=== PATIENT | male | born 1995 | race Caucasian/White ===

== ENCOUNTER 2018-12-26 14:36 | Inpatient (IN) ==
[2018-12-26 15:16] LABS: Appearance Urine Cloudy (Clear); Bacteria Urine Automated Negative (Negative); Bilirubin Urine Negative (Negative); Blood Urine Negative (Negative); Cast Urine Automated 0 /lpf (0-5); Color Urine Yellow; Epithelial Cell Urine Auto 0-5 /lpf (0-5); Glucose Urine UA Negative (Negative); Ketones Urine Negative (Negative); Leukocyte Esterase Urine Negative (Negative); Nitrite Urine Negative (Negative); Protein Urine Negative (Negative); RBC Urine Automated 0-4 /hpf (0-4); Specific Gravity Urine 1.021 (1.000-1.030); Urobilinogen Urine Negative (Negative); WBC Urine Automated 0 /hpf (0-5)
[2018-12-26 15:36] LABS: Amphetamines+Metham, Urine Neg (Neg); Barbiturates, Urine Neg (Neg); Benzodiazepine, Urine Neg (Neg); Cocaine, Urine Neg (Neg); MDMA (Ecstacy), Urine Neg (Neg); Methadone, Urine Neg (Neg); Opiate, Urine Neg (Neg); Phencyclidine, Urine Neg (Neg)
[2018-12-26 16:14] LABS: Basophils # (auto) 0.03 K/uL (0-0.2); Basophils % (auto) 0.3 %; Eosinophils # (auto) 0.14 K/uL (0-0.5); Eosinophils % (auto) 1.5 %; Hematocrit (blood only) 44.7 % (42-52); Hemoglobin 16.1 g/dL (14.0-18.0); Immature Granulocytes # (auto) 0.01 K/uL (0.00-0.02); Immature Granulocytes % (auto) 0.1 %; Lymphocytes # (auto) 1.59 K/uL (1.2-3.4); Lymphocytes % (auto) 16.8 %; Mean Corpuscular Volume 93.5 fL (80-100); Mean Platelet Volume 10.5 fL (7.4-10.4); Monocytes # (auto) 0.67 K/uL (0.11-0.59); Monocytes % (auto) 7.1 %; Neutrophils # (auto) 7.02 K/uL (1.4-6.5); Neutrophils % (auto) 74.2 %; Platelet Count 182 K/uL (130-400); Red Blood Count 4.78 M/uL (4.7-6.1); White Blood Count 9.46 K/uL (4.8-10.8)
[2018-12-26 16:41] LABS: BUN Creatinine Ratio 15.3 (10-20); Calcium 9.3 mg/dl (8.5-10.1); Creatinine Clr Calc Pharmacy 108.4 ml/min; Est GFR (African American) 106.4; Est GFR (Non-African American) 91.8; Potassium 4.2 mmol/L (3.5-5.1)
[2018-12-26 16:52] LABS: Albumin Globulin Ratio 1.2 (0.9-2); Bilirubin,Total 1.4 mg/dl (0.2-1); Globulin 3.3 gm/dl (2.5-4.0); Total Protein 7.3 gm/dl (6.4-8.2)
[2018-12-26 17:22] LABS: Acetaminophen < 2 ug/ml (10-30); Salicylate < 1.7 mg/dl (2.8-20)
--- NOTE | 2018-12-26 17:58 | Emergency Department Note ---
Entered by Cassidy Escalante acting as a scribe for ED Provider Note CHIEF COMPLAINT: Mental Health Evaluation HISTORY OF PRESENT ILLNESS: The patient is a 23 year old male who presents to the Emergency Room with complaints of needing a mental health evaluation. He reports he has been feeling depressed for the past 3 weeks. He denies any new stressors or triggers and admits to a history of depression and anxiety. He notes he recently moved from [place] to [facility] and has been trying to establish with a new therapist in [place], but came back to [place] because of his worsening mood and increased stress. He does not have a current Psychiatrist. He states he has never been treated as an inpatient at a psychiatric facility before. He was on Zoloft, but states he stopped taking it 2 days ago. He had been on it for appro ximately 2 months. The patient saw his PCP, Dr. Donovan recently and talked about his increasing suicidality, and he was referred here to the ED for his symptoms. He notes he has been sleeping more and still wakes up feeling very tired every day. The patient admits he has did buy a rope and tied a noose with the attempt to hang himself. He stopped because the rope "hurt". He notes he did drive to a bridge last night but did not do anything once he got there. He denies any homicidal ideations. Pt denies LOC, headache, fevers, chills, diaphoresis, visual changes, neck pain, chest pain, breathing difficulties, nausea, vomiting, abdominal pain, back pain, melena, hematochezia, urinary symptoms, numbness, weakness, lymphadenopathy, rash, or other complaints. REVIEW OF SYSTEMS: See HPI for pertinent positives and negatives. A total of ten systems were r eviewed and were otherwise negative. PMHx/PSHx: Depression. Anxiety. SOCIAL HISTORY: Patient lives at home. PHYSICAL EXAM: GENERAL: Awake, alert, well-appearing, in no distress HENT: Normocephalic, atraumatic. Oropharynx unremarkable. EYES: PERRL. Normal conjunctiva. Sclera non-icteric. NECK: Inspection normal. Non-tender. Supple. No nuchal rigidity. FROM. No masses. RESPIRATORY: Clear to auscultation. No wheezes. No rales. Normal respiratory effort. CARDIAC: Normal rate. Normal rhythm. No murmurs. No rubs. Extremities warm and well perfused. Pulses equal. No JVD. GI: Soft, non-distended. No tenderness to palpation. No rebound or guarding. No masses. RECTAL: Deferred. MUSCULOSKELETAL: Atraumatic. Chest examination reveals no tenderness. The back is symmetrical on inspection without obvious abnormality. There is no CVA tenderness to palpation. No joint edema. LOWER EXTREMITIES: Calves are equal size bilaterally and non-tender. No edema. No discoloration. NEURO: Normal sensorium. No sensory or motor deficits noted. Normal MARLA, no drift, cranial nerves intact, normal heel to osorio. SKIN: No rash or jaundice noted. PSYCHIATRIC: Depressed mood, normal affect, SI, no HI. EMERGENCY DEPARTMENT COURSE: 152: Past medical records reviewed. The patient was evaluated in room A5, and a complete history and physical examination were performed. 1718: Psychiatric Case Management is evaluating the patient. 1735: I reevaluated the patient. I updated him on our [facility] being in contact with Jyoti Zafar and he is agreeable with the plan. 1815: Jyoti Zafar will be taking the patient upstairs for further evaluation and management. MEDICAL DECISION MAKING: Triage Nursing notes reviewed and agree them. The patient's history was concerning for possible psychiatric disturbance. Differential diagnosis: Etiologies such as mood disorder, infection, hypoglycemia, electrolyte abnormalities, cardiac sources, intracerebral event, toxicologic, neurologic, as well as others were entertained. Physical examination: The physical examination was performed as above and was completely benign. No emergent medical pathologies were noted. ER treatment provided: No medication given On reassessment the patient felt the same. Diagnostic interpretation by me: The labs revealed an unremarkable CBC and chemistry panel. Tox screen negative. Consultation: The consultation was made with [address] [place] [address]. The patient was evaluated in the ER and felt to be a good candidate for inpatient treatment. Patient was voluntary for admission. IMPRESSION: Mood disorder PLAN: Further evaluation and management by Jyoti Zafar The scribe's documentation has been prepared under my direction and personally reviewed by me in its entirety. I confirm that the note above accurately reflects all work, treatment, procedures, and medical decision making performed by me. Impression & Plan Mood disorder Past Med/Surg History Family History Other No pertinent family history Social History Preferred Language: Senegalese Communication Ability: Effective Visual Impairment: No Limitations Hearing Ability: Normal Patient Ambassador Required: No Beliefs That Will Affect Care: None marital status: Single Current Living Situation: Family current occupational status: student current occupation: also works registered nurse post partum Feels Safe at Home: Yes Smoking Status: Former smoker Tobacco Type: e-cigarettes ; Second Hand Exposure: No ; Hx Alcohol Use: Yes Alcohol Intake Frequency: Rarely Hx Substance Use: No Childhood Exposure to Second-Hand Smoke: No Dental Care, Regularly: Yes Physical Activity Frequency: 3-4 Times per Week Results & Data Vital Signs Vital Signs - 24 hr 12/26/18 14:42 12/26/18 16:27 Temperature 36.7 C Temperature Source Oral Sepsis Recent Fever Within 48 Hours No Sepsis New/Unexplained Change in Mental Status No Sepsis Action Taken by Nursing No Action Required Pulse Rate 143 H Pulse Rate [Left Finger] 62 Respiratory Rate 20 20 Respiratory Effort / Characteristics Non-Labored Non-Labored Respiratory Depth Normal Normal Respiratory Pattern Regular Blood Pressure 127/74 Blood Pressure [Left Arm] 123/65 Blood Pressure Mean 91 Blood Pressure Mean [Left Arm] 84 Blood Pressure Position Sitting Pulse Oximetry 95 98 Oxygen Delivery Method Room Air Room Air Home Medications Current Medication List: was personally reviewed by me Laboratory Data Attestation: I reviewed the patient's lab results. Result diagrams: 12/26/18 15:58 12/26/18 15:58 Lab Results 12/26/18 12/26/18 12/26/18 Range/Units 15:04 15:04 15:58 WBC 9.46 (4.8-10.8) K/uL RBC 4.78 (4.7-6.1) M/uL Hgb 16.1 (14.0-18.0) g/dL Hct 44.7 (42-52) % MCV 93.5 (80-100) fL MCH 33.7 (25-34) pg MCHC 36.0 (32-36) g/dL RDW Std Deviation 45.0 (36.4-46.3) fL RDW Coeff of Steffany 13.0 (11.5-14.5) % Plt Count 182 (130-400) K/uL MPV 10.5 H (7.4-10.4) fL Immature Gran % (Auto) 0.1 % Neut % (Auto) 74.2 % Lymph % (Auto) 16.8 % Carter % (Auto) 7.1 % Eos % (Auto) 1.5 % Baso % (Auto) 0.3 % Immature Gran # (Auto) 0.01 (0.00-0.02) K/uL Neut # (Auto) 7.02 H (1.4-6.5) K/uL Lymph # (Auto) 1.59 (1.2-3.4) K/uL Carter # (Auto) 0.67 H (0.11-0.59) K/uL Eos # (Auto) 0.14 (0-0.5) K/uL Baso # (Auto) 0.03 (0-0.2) K/uL Sodium (136-145) mmol/L Potassium (3.5-5.1) mmol/L Chloride (98-107) mmol/L Carbon Dioxide (21-32) mmol/L Anion Gap (3-11) BUN (7-18) mg/dl Creatinine (0.6-1.4) mg/dl Est Cr Clr Drug Dosing ml/min Est GFR ( Amer) Est GFR (Non-Af Amer) BUN/Creatinine Ratio (10-20) Glucose (70-99) mg/dl Calcium (8.5-10.1) mg/dl Total Bilirubin (0.2-1) mg/dl AST (15-37) U/L ALT (12-78) U/L Alkaline Phosphatase (45-117) U/L Total Protein (6.4-8.2) gm/dl Albumin (3.4-5.0) gm/dl Globulin (2.5-4.0) gm/dl Albumin/Globulin Ratio (0.9-2) TSH (0.300-4.500) uIu/ml Urine Color Yellow Urine Appearance Cloudy A (Clear) Urine pH 8.0 H (4.5-7.5) Ur Specific Wellborn 1.021 (1.000-1.030) Urine Protein Negative (Negative) Urine Glucose (UA) Negative (Negative) Urine Ketones Negative (Negative) Urine Blood Negative (Negative) Urine Nitrite Negative (Negative) Urine Bilirubin Negative (Negative) Urine Urobilinogen Negative (Negative) Ur Leukocyte Esterase Negative (Negative) Urine WBC (Auto) 0 (0-5) /hpf Urine RBC (Auto) 0-4 (0-4) /hpf U Hyaline Cast (Auto) 0 (0-5) /lpf U Epithel Cells (Auto) 0-5 (0-5) /lpf Urine Bacteria (Auto) Negative (Negative) Salicylates (2.8-20) mg/dl Urine Opiates Screen Neg (Neg) Ur Methadone, Qual Neg (Neg) Acetaminophen (10-30) ug/ml Urine Barbiturates Neg (Neg) Ur Phencyclidine (PCP) Neg (Neg) U Amphetamin/Meth Scrn Neg (Neg) MDMA (Ecstasy) Screen Neg (Neg) U Benzodiazepines Scrn Neg (Neg) Ur Cocaine Metabolite Neg (Neg) U Marijuana (THC) Screen Neg (Neg) Ethyl Alcohol mg/dL (0-3) mg/dl 12/26/18 12/26/18 12/26/18 Range/Units 15:58 15:58 15:58 WBC (4.8-10.8) K/uL RBC (4.7-6.1) M/uL Hgb (14.0-18.0) g/dL Hct (42-52) % MCV (80-100) fL MCH (25-34) pg MCHC (32-36) g/dL RDW Std Deviation (36.4-46.3) fL RDW Coeff of Steffany (11.5-14.5) % Plt Count (130-400) K/uL MPV (7.4-10.4) fL Immature Gran % (Auto) % Neut % (Auto) % Lymph % (Auto) % Carter % (Auto) % Eos % (Auto) % Baso % (Auto) % Immature Gran # (Auto) (0.00-0.02) K/uL Neut # (Auto) (1.4-6.5) K/uL Lymph # (Auto) (1.2-3.4) K/uL Carter # (Auto) (0.11-0.59) K/uL Eos # (Auto) (0-0.5) K/uL Baso # (Auto) (0-0.2) K/uL Sodium 139 (136-145) mmol/L Potassium 4.2 (3.5-5.1) mmol/L Chloride 105 (98-107) mmol/L Carbon Dioxide 27 (21-32) mmol/L Anion Gap 7.0 (3-11) BUN 17 (7-18) mg/dl Creatinine 1.11 (0.6-1.4) mg/dl Est Cr Clr Drug Dosing 108.4 ml/min Est GFR ( Amer) 106.4 Est GFR (Non-Af Amer) 91.8 BUN/Creatinine Ratio 15.3 (10-20) Glucose 97 (70-99) mg/dl Calcium 9.3 (8.5-10.1) mg/dl Total Bilirubin 1.4 H (0.2-1) mg/dl AST 22 (15-37) U/L ALT 34 (12-78) U/L Alkaline Phosphatase 54 (45-117) U/L Total Protein 7.3 (6.4-8.2) gm/dl Albumin 4.0 (3.4-5.0) gm/dl Globulin 3.3 (2.5-4.0) gm/dl Albumin/Globulin Ratio 1.2 (0.9-2) TSH 3.120 (0.300-4.500) uIu/ml Urine Color Urine Appearance (Clear) Urine pH (4.5-7.5) Ur Specific Wellborn (1.000-1.030) Urine Protein (Negative) Urine Glucose (UA) (Negative) Urine Ketones (Negative) Urine Blood (Negative) Urine Nitrite (Negative) Urine Bilirubin (Negative) Urine Urobilinogen (Negative) Ur Leukocyte Esterase (Negative) Urine WBC (Auto) (0-5) /hpf Urine RBC (Auto) (0-4) /hpf U Hyaline Cast (Auto) (0-5) /lpf U Epithel Cells (Auto) (0-5) /lpf Urine Bacteria (Auto) (Negative) Salicylates < 1.7 L (2.8-20) mg/dl Urine Opiates Screen (Neg) Ur Methadone, Qual (Neg) Acetaminophen < 2 L (10-30) ug/ml Urine Barbiturates (Neg) Ur Phencyclidine (PCP) (Neg) U Amphetamin/Meth Scrn (Neg) MDMA (Ecstasy) Screen (Neg) U Benzodiazepines Scrn (Neg) Ur Cocaine Metabolite (Neg) U Marijuana (THC) Screen (Neg) Ethyl Alcohol mg/dL < 3.0 (0-3) mg/dl Blood Pressure Blood Pressure Findings: Normal blood pressure Blood Pressure Disposition: did not require urgent referral Discharge Plan Visit Data *Final* Discharge Date/Time: 12/26/18 19:13 Chief Complaint: Mental Health Evaluation Stated Complaint: PSYCHIATRIC EMERGENCY ED Provider: Cullen Marin Discharge Problem: Mood disorder Patient Disposition: Still a Patient Discharge Instructions Interventions: ED Discharge Assessment Last Done: 12/26/18 19:13 The scribe's documentation has been prepared under my direction and personally reviewed by me in its entirety. I confirm that the note above accurately reflects all work, treatment, procedures, and medical decision making performed by me.
[2018-12-26] MEDS ORDERED: BISMUTH SUBSALICYLATE PER ML OMNICELL CHARGE PO PRN (18:23)
[2018-12-26] MEDS ORDERED: ACETAMINOPHEN 325 MG TAB PO PRN (18:23)
[2018-12-26] MEDS ORDERED: SODIUM CHLORIDE 0.65% NA SOLN 45 ML (OCEAN) PRN (18:23)
[2018-12-26] MEDS ORDERED: MAGNESIUM HYDROXIDE SUSP 30 ML UDC PO PRN (18:23)
[2018-12-26] MEDS ORDERED: ALUMINUM/MAGNESIUM SUSP 30 ML UDC PO PRN (18:23)
[2018-12-26] MEDS ORDERED: EPINEPHrine INJ 1 MG/ML AMP IM PRN (20:55)
[2018-12-26] MEDS ORDERED: ALBUTEROL HFA 8 GM INHALER INH PRN (20:55)
[2018-12-26] MEDS ORDERED: TOPIRAMATE 50 MG TAB PO SCH (21:00)
[2018-12-26] MEDS ORDERED: lamoTRIgine 25 MG TAB PO SCH (21:00)
[2018-12-26] MEDS ORDERED: LEVOTHYROXINE SODIUM 25 MCG TABLET PO SCH (22:00)
--- NOTE | 2018-12-27 07:10 | History & Physical ---
Date of Service December 27, 2018 Impression / Recommendations Impression 23-year-old single male who recently moved to [facility] but has family in [place], has a history of recurrent depression and social anxiety, and presented with worsening mood and suicidal ideation, after multiple suicide attempts in the past several weeks, including hanging and jumping off a bridge (went to the bridge and sent a suicide note to friends, but did not ultimately jump). He describes worsening of depression after a breakup about 4 weeks ago, compounded by multiple psychosocial stressors including a move and looking for a job, and also complicated by the history of his father's completed suicide by hanging 4 years ago. He had good response to sertraline with respect to anxiety and some of his depressive symptoms, but questions if it was were making his suicidal thoughts more intense, so stopped it several days ago. We discussed other medication options including escitalopram, fluoxetine, and venlafaxine XR. He recently started therapy in [place], and is willing for a referral for psychiatric care as well. He is also agreed to a family meeting with his mother. Inpatient treatment is medically necessary at this time due to the severity of symptoms and risk for suicide if discharged prematurely. (1) Depression: 12/27 - Reviewed diagnoses and treatment options, including resuming sertraline while monitoring SI closely, trial of a different SSRI (escitalopram or fluoxetine), or trial of SNRI. Discussed risks and benefits of each, and he will consider the options and wants to talk to his mother to see what she has responded to medication-becker. - Encourage group attendance and participation, working on coping skills and safety plan. - Family meeting with mother. - Coordinate care with therapist in [facility] and refer for psychiatric care. Depression Type: major depressive disorder Major depression recurrence: recurrent Active/Remission status: currently active Major depression episode severity: severe Psychotic features: without psychotic fe atures Qualified Code(s): F33.2 - Major depressive disorder, recurrent severe without psychotic features Present on Admission?: Yes (2) Anxiety: 12/27 - long standing social anxiety, improved on SSRI in the past. Med recs as above, and continue OP therapy. Present on Admission?: Yes Inventory Assets Strengths: supportive family, intelligence and engagement in treatment Needs: coping skills, OP treatment, safety plan Risk Factors Assessment Male: Yes : Yes Do You Have Access To A Gun?: No Health Problems: No Mental Health Diagnoses: Yes Substance Use Disorders: No Previous Attempt: Yes Previous Attempt; Highly Lethal: Yes Previous Attempt; Planned: Yes Previous Attempt; Didn't Tell Anyone: No Family History of Suicide: Yes Previous Psychiatric Hospitalization: No Hopelessness: Yes Smoker: Yes Protective Factors Assessment : No Responsible for Young Children: No 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 Chief Complaint "You got a minute, it might take a while". History of Present Illness Per records, the patient presented to the ER yesterday, 12/26/2018, reporting worsening depression for the past 3 weeks. He reported multiple stressors including the of his father by suicide several years ago, a recent move, and that his girlfriend broke up with him. He said he recently moved to [facility] and does not have outpatient mental health treatment, but had been prescribed sertraline by his PCP 2 months ago which she stopped 2 days prior to presentation as he thought it was making him feel worse. He saw his PCP, Dr. Donovan, and disclosed increasing suicidality, and was referred to the emergency room. He reported suicidal thoughts with multiple plans, and 3 weeks ago bought a rope and tied it into a noose which he put around his neck, but stopped because it hurt. The night prior to presentation he drove to a bridge in [facility] with thoughts of jumping, but did not go through with it, and the following day decided to drive back home to [place] and get help. Inpatient treatment was recommended and he signed in voluntarily. While he was in the ER, local police called to report that his ex girlfriend and her family reported him for harassment, and that he contacted the patient to warn him to cease communication. He clarified that no criminal charges are filed at this time. On my assessment, he reports that "the biggest thing is I just got out of a relationship with someone I was deeply, deeply in love with. I've been iced out by them, sort of needed answers and I've been blocked." He knew his ex- girlfriend from and she is also from [employer], and they have a history, and have been dating for the past year which he describes as "really intense." He has been surprised at his ex-girlfriend's response in not wanting to talk to him, noting they broke up the day before he moved to [facility] 4 weeks ago. He started having suicidal thoughts about a week later, and after a couple days bought a rope and went to a park that he knew would be empty at night, climbed up a tree and hung up the rope that he had tied into a noose, and throughout this was calling his ex. He was also drinking throughout the incident. He had researched where on the neck to apply pressure to end his life. He decided to go home as he didn't want someone to come along while he was doing this, thinking he could hang himself at home, "but another part of me thought I was just going to go to bed." He called his ex-girlfriend again, begging her to talk to him and saying that he just had a rope around his neck. She had been telling him not to call her, but they ultimately talked and the conversation ended badly. He returned home and attempted to hang himself again, hanging the noose over a door, and went to his knees to apply pressure, and thinks he was about to lose consciousness but was in a lot of pain and put his feet down. He felt shaken and "overwhelmingly sad," and reached out to some of his friends who were supportive. His ex-girlfriend then blocked all communication with him. About a week later, he again felt "really low," describing "just sitting in bed and an overwhelming, adrenaline, waves of stress," and frustration that he was still looking for a job and mourning his relationship. He had been talking to one friend daily but "just started lying about it," saying he was "doing great" when he wasn't, as he felt guilty for "asking so much of his." He used cocaine one night at a republican, which he recognized worsened his mood as it "really depleted my dopamine." He did enjoy his birthday with his mother visiting and going to dinner and a show, but later than night was "bawling, screaming, because it's just intolerable." He reports mood symptoms improved on sertraline, but wonders if it is causing suicidal thoughts, as his SI has gotten stronger and he has had more times where he has intent to follow through. He thinks that about 15% of his SI is due to medication. He denies changes in appetite or weight, sleeping 8 hours/night but still feels tired during the day, motivation is low, with hopelessness. Describes daily thinking that he should go out and get a job, but then thinking "you're just going to submit suicide anyway." Describes renting a movie and knew the protagonist looked like his ex-girlfriend, drinking alcohol while watching it, pausing the movie intermittently to cry, and when it was over going to a bridge with thoughts to jump, knowing that there was a place in the middle where there was land underneath it. He had previously looked up bridges in [facility] that people could jump off to in order to , and sent messages to two friends explaining where his phone, keys, and car were, and asking them to pass messages on to other people. He was also repeatedly calling his ex-girlfriend throughout this incident, and tried to call her mother as well. When he arrived, he was "there for a while," climbed up on the ledge, and one of his friends then called him and he climbed back down to talk to him, and ultimately called his mother who told him to come back to [place], and after sleeping, came into the ER. 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 H/o one panic attack a year ago when driving a rental car that broke down. Denies SUSAN, PTSD, OCD symptoms, other than times where he was "obsessive" about tightening and tuning his drums, which is not going on currently. He denies ever having hallucinations, paranoia, and aryan. Past Psychiatric History Previous Psych History: Multiple episodes of depression and anxiety, first diagnosed at the beginning of college Current Psychiatric Diagnosis: Depression Outpatient Services: PCP Dr. Donovan prescribes antidepressant medication. Recently started therapy with Bello Whipple in [facility] Previous Psych Admissions: Denies Do You Have Access To A Gun?: No History of Previous Suicide Attempt: Yes (Bought a rope, tied it into a noose, and put it around his neck 3 weeks ago. Went to a bridge in [facility] with thoughts of jumping 12/25/2018.) Past Medication Trials: Sertraline 75 mg x 2 months, stopped 2 days ago as wondered if it was making SI worse unknown antidepressant for 2 weeks at age 16, but stopped after a couple of weeks as didn't think it was working Allergies Allergy/AdvReac Type Severity Reaction Status Date / Time No Known Allergies Allergy Unverified 12/26/18 15:17 Home Medications Home Medications Medication Instructions Recorded Confirmed Type sertraline 50 mg tablet 75 mg PO DAILY #135 tab 11/27/18 12/26/18 Rx cetirizine [Zyrtec] 10 mg PO DAILY 12/26/18 12/26/18 History melatonin 3 mg PO HS PRN 12/26/18 12/26/18 History multivitamin with iron 1 tab PO DAILY 12/26/18 12/26/18 History Family History Family History of: Anxiety (Paternal aunt with OCD), Alcoholism/Drug Abuse ([facility] [place] [facility] alcoholic) and Suicide Completion (Father by suicide 4 years ago (hanging)) Family Mental Health History Comment: Believes paternal grandparents had an unknown mental illness Alcohol History Hx of Alcohol Use Over the Past 12 Months: Yes (1-2 drinks daily for past month) AUDIT Total Score: 4 Patient reports drinking nightly for the past month to help him sleep. He denies any history of substance abuse problems or treatment, but reports a family history of alcoholism. Smoking Use Have You Smoked or Used Tobacco Products in the Last 30 Days: Yes tobacco type: e-cigarettes Smoking Status: Former smoker Smoking packs per day: 0.5 Substance History Hx of Prescription Med Misuse Over the Past 12 Months: No Hx of Over the Counter Med Misuse Over the Past 12 Months: No Hx of Inhalent Misuse Over the Past 12 Months: No Hx of Organic Substance Use Over the Past 12 Months: No Hx of Illegal Substances/Street Drug Use Over Past 12 Months: Yes (cocaine use once 2 weeks ago) Problems as a Result of Past Substance Use: Other (worsened mood ) Personal History Living Arrangements: Apartment Living Arrangements Comments: Apartment with 2 roommates and [facility] Childhood: Living in [place] since age 13. Mother and brother still reside here. 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) Marital Status: Single Number Of Children: 0 Beliefs That Will Affect Care: None Legal Problems Comment: Police contacted him to advise him not to contact his ex-girlfriend Hx Traumatic Life Events: Yes Psychological Trauma History Comment: Father's by suicide Patient History Family History Other No pertinent family history Social History Preferred Language: Syriac Communication Ability: Effective Visual Impairment: No Limitations Hearing Ability: Normal Licensed Prosthetist Required: No Beliefs That Will Affect Care: None marital status: Single Current Living Situation: Family current occupational status: student 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 Feels Safe at Home: Yes Smoking Status: Former smoker Tobacco Type: e-cigarettes ; Second Hand Exposure: No ; Hx Alcohol Use: Yes Alcohol Intake Frequency: Rarely Hx Substance Use: No Childhood Exposure to Second-Hand Smoke: No Dental Care, Regularly: Yes Physical Activity Frequency: 3-4 Times per Week Review of Systems Review of Systems: All systems reviewed & are unremarkable except as noted in HPI & below Physical Exam Psychiatric: Orientation: alert and cooperative Apperance: appropriately dressed Eye Contact: good eye contact Motor Behavior: steady gait and station and no abnormal motor movements Speech: normal rate/rhythm/volume of speech talkative, loud at times Affect: + depressed affect and + anxious affect Mood: + depressed mood and + anxious mood Thought Process: goal d irected thought process and linear/logical thought process Thought Content: reality based without delusions Suicidal Thoughts: + reports suicidal thoughts Homicidal Thoughts: denies homicidal thoughts Hallucinations: no auditory hallucinations and no visual hallucinations Cognition: recent memory grossly intact, remote memory grossly intact, attention grossly intact and language grossly intact Estimated Intelligence: consistent with education level Insight: + impaired insight Judgement: + impaired judgement Vital Signs (Past 24 Hours): Last Vital Signs Temp 36.3 C L 12/27/18 06:55 Pulse 74 12/27/18 06:56 Resp 18 12/27/18 06:55 BP 112/68 12/27/18 06:56 Pulse Ox 98 12/26/18 18:48 Exam Statement: A physical exam was performed in the ER prior to admission to the unit by Dr. Marin. I accept that physical as correct/medical clearance for the inpatient physical exam. Results & Data Laboratory Results Laboratory Results - last 24 hr 12/26/18 12/26/18 12/26/18 15:04 15:04 15:58 WBC 9.46 RBC 4.78 Hgb 16.1 Hct 44.7 MCV 93.5 MCH 33.7 MCHC 36.0 RDW Std Deviation 45.0 RDW Coeff of Steffany 13.0 Plt Count 182 MPV 10.5 H Immature Gran % (Auto) 0.1 Neut % (Auto) 74.2 Lymph % (Auto) 16.8 Floyd % (Auto) 7.1 Eos % (Auto) 1.5 Baso % (Auto) 0.3 Immature Gran # (Auto) 0.01 Neut # (Auto) 7.02 H Lymph # (Auto) 1.59 Floyd # (Auto) 0.67 H Eos # (Auto) 0.14 Baso # (Auto) 0.03 Sodium Potassium Chloride Carbon Dioxide Anion Gap BUN Creatinine Est Cr Clr Drug Dosing Est GFR ( Amer) Est GFR (Non-Af Amer) BUN/Creatinine Ratio Glucose Calcium Total Bilirubin AST ALT Alkaline Phosphatase Total Protein Albumin Globulin Albumin/Globulin Ratio TSH Urine Color Yellow Urine Appearance Cloudy A Urine pH 8.0 H Ur Specific [place] 1.021 Urine Protein Negative Urine Glucose (UA) Negative Urine Ketones Negative Urine Blood Negative Urine Nitrite Negative Urine Bilirubin Negative Urine Urobilinogen Negative Ur Leukocyte Esterase Negative Urine WBC (Auto) 0 Urine RBC (Auto) 0-4 U Hyaline Cast (Auto) 0 U Epithel Cells (Auto) 0-5 Urine Bacteria (Auto) Negative Salicylates Urine Opiates Screen Neg Ur Methadone, Qual Neg Acetaminophen Urine Barbiturates Neg Ur Phencyclidine (PCP) Neg U Amphetamin/Meth Scrn Neg MDMA (Ecstasy) Screen Neg U Benzodiazepines Scrn Neg Ur Cocaine Metabolite Neg U Marijuana (THC) Screen Neg Ethyl Alcohol mg/dL 12/26/18 12/26/18 12/26/18 15:58 15:58 15:58 WBC RBC Hgb Hct MCV MCH MCHC RDW Std Deviation RDW Coeff of Steffany Plt Count MPV Immature Gran % (Auto) Neut % (Auto) Lymph % (Auto) Floyd % (Auto) Eos % (Auto) Baso % (Auto) Immature Gran # (Auto) Neut # (Auto) Lymph # (Auto) Floyd # (Auto) Eos # (Auto) Baso # (Auto) Sodium 139 Potassium 4.2 Chloride 105 Carbon Dioxide 27 Anion Gap 7.0 BUN 17 Creatinine 1.11 Est Cr Clr Drug Dosing 108.4 Est GFR ( Amer) 106.4 Est GFR (Non-Af Amer) 91.8 BUN/Creatinine Ratio 15.3 Glucose 97 Calcium 9.3 Total Bilirubin 1.4 H AST 22 ALT 34 Alkaline Phosphatase 54 Total Protein 7.3 Albumin 4.0 Globulin 3.3 Albumin/Globulin Ratio 1.2 TSH 3.120 Urine Color Urine Appearance Urine pH Ur Specific [place] Urine Protein Urine Glucose (UA) Urine Ketones Urine Blood Urine Nitrite Urine Bilirubin Urine Urobilinogen Ur Leukocyte Esterase Urine WBC (Auto) Urine RBC (Auto) U Hyaline Cast (Auto) U Epithel Cells (Auto) Urine Bacteria (Auto) Salicylates < 1.7 L Urine Opiates Screen Ur Methadone, Qual Acetaminophen < 2 L Urine Barbiturates Ur Phencyclidine (PCP) U Amphetamin/Meth Scrn MDMA (Ecstasy) Screen U Benzodiazepines Scrn Ur Cocaine Metabolite U Marijuana (THC) Screen Ethyl Alcohol mg/dL < 3.0 Current Inpatient Medications Current Inpatient Medications: Current Inpatient Medications Acetaminophen (Tylenol) 650 mg PO Q4H PRN PRN Reason: Headache or Minor Fever Stop: 01/25/19 18:22 Al Hydrox/Mg Hydrox/Simethicone (Maalox) 30 ml PO Q4H PRN PRN Reason: GI Upset Stop: 01/25/19 18:22 Bismuth Subsalicylate (Kaopectate) 15 ml PO PRN PRN PRN Reason: Loose Stool Stop: 01/25/19 18:22 Cetirizine HCl (Zyrtec) 10 mg PO QAM MARIANO Stop: 01/26/19 08:59 Hydroxyzine HCl (Vistaril) 50 mg PO HSZ PRN PRN Reason: Insomnia Stop: 01/25/19 18:22 Hydroxyzine HCl (Vistaril) 25 mg PO Q4H PRN PRN Reason: Anxiety Stop: 01/25/19 18:22 Magnesium Hydroxide (Milk Of Magnesia) 30 ml PO DAILY PRN PRN Reason: Constipation Stop: 01/25/19 18:22 Miscellaneous (Remove Nicoderm Patch) 1 ea N/A HS MARIANO Stop: 01/26/19 21:59 Multivitamins (Multivitamin Tab) 1 tab PO QAM MARIANO Stop: 01/26/19 08:59 Nicotine (Nicoderm Cq) 14 mg TD QAM MARIANO Stop: 01/26/19 08:59 Nicotine Polacrilex (Nicorette 2mg) 1 piece MT UD PRN PRN Reason: Nicotine Withdrawal Stop: 01/25/19 21:02 Sodium Chloride (Jenkins Nasal) 1 - 2 sprays NA PRN PRN PRN Reason: Nasal Dryness/Congestion Stop: 01/25/19 18:22 CPT Code CPT Code Initial Hospital Care: 52231
[2018-12-27] MEDS: MULTIVITAMIN TAB PO SCH (10:00)
[2018-12-27] MEDS: CETIRIZINE HCL 10 MG TABLET PO SCH (10:01)
[2018-12-27] MEDS: NICOTINE 14 MG/24 HR PATCH TD SCH (10:05)
[2018-12-27] MEDS: NICOTINE POLACRILEX 2 MG GUM MT PRN ×2 (10:12→13:00)
[2018-12-28] MEDS: MULTIVITAMIN TAB PO SCH (08:53)
[2018-12-28] MEDS: CETIRIZINE HCL 10 MG TABLET PO SCH (08:53)
[2018-12-28] MEDS: NICOTINE 14 MG/24 HR PATCH TD SCH (08:54)
[2018-12-28] MEDS: NICOTINE POLACRILEX 2 MG GUM MT PRN ×2 (11:05→18:57)
[2018-12-28] MEDS: FLUOXETINE HCL 20 MG CAP PO SCH (12:55)
--- NOTE | 2018-12-28 14:58 | Psychiatric Progress Note ---
Date of Service December 28, 2018 Impression / Recommendations Impression 23-year-old single male who recently moved to [facility] but has family in [place], has a history of recurrent depression and social anxiety, and presented with worsening mood and suicidal ideation, after multiple suicide attempts in the past several weeks, including hanging and jumping off a bridge (went to the bridge and sent a suicide note to friends, but did not ultimately jump). He describes worsening of depression after a breakup about 4 weeks ago, compounded by multiple psychosocial stressors including a move and looking for a job, and also complicated by the history of his father's completed suicide by hanging 4 years ago. He had good response to sertraline with respect to anxiety and some of his depressive symptoms, but questions if it was were making his suicidal thoughts more intense, so stopped it several days ago. We discussed other medication options including escitalopram, fluoxetine, and venlafaxine XR and has decided to start fluoxetine. He recently started therapy in [place], and is willing for a referral for psychiatric care as well. He is also agreed to a family meeting with his mother. Inpatient treatment is medically necessary at this time due to the severity of symptoms and risk for suicide if discharged prematurely. (1) Depression: 12/27 - Reviewed diagnoses and treatment options, including resuming sertraline while monitoring SI closely, trial of a different SSRI (escitalopram or fluoxetine), or trial of SNRI. Discussed risks and benefits of each, and he will consider the options and wants to talk to his mother to see what she has responded to medication-becker. - Encourage group attendance and participation, working on coping skills and safety plan. - Family meeting with mother. - Coordinate care with therapist in [facility] and refer for psychiatric care. 12/28 - reviewed fluoxetine and sertraline in detail and pt decided to start trial of fluoxetine 20mg daily first dose today validated aim to use coping strategies and reminded pt of Vistaril prn doses as option to take if emotional tensions/anxiety flares up too intensely, can consider this as option for him for after discharge as well continue treatment plan (2) Anxiety: 12/27 - long standing social anxiety, improved on SSRI in the past. Med recs as above, and continue OP therapy. 12/28 starting prozac 20mg daily as above, prn vistaril while on the unit and perhaps for after discharge as well family meeting with mother occured Inventory Assets Strengths: supportive family, intelligence and engagement in treatment Needs: coping skills, OP treatment, safety plan Risk Factors Assessment Male: Yes : Yes Do You Have Access To A Gun?: No Health Problems: No Mental Health Diagnoses: Yes Substance Use Disorders: No Previous Attempt: Yes Previous Attempt; Highly Lethal: Yes Previous Attempt; Planned: Yes Previous Attempt; Didn't Tell Anyone: No Family History of Suicide: Yes Previous Psychiatric Hospitalization: No Hopelessness: Yes Smoker: Yes Protective Factors Assessment : No Responsible for Young Children: No 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 Review of Systems Sleep Information Total Hours of Sleep: 5.5 Sleep Comments: pt on q-15 minute checks Meal Information Percent Meal Consumed - Breakfast: 100 Percent Meal Consumed - Lunch: 100 Percent Meal Consumed - Dinner: 100 Subjective Subjective Patient was seen & assessed and interval progress reviewed with treatment team. Pt reports that his SI is lessening but not resovled. He denied current intent with his Si that remains and has times of thinking about bridges that one could use to commit suicide but just something his mind can easily go to. He reports such thoughts and any other Si related thoughts are reduced notably from how was in recent days. Pt shared how he felt he was improving in his mood and anxiety and SI concerns in first 6 or so weeks while taking Zoloft (most notably after about 3 or so weeks on it) but that with the breakup of his gf he was worsened in but still perhaps improved in other ways. However he is hesitant to resume Zoloft and shared how reviewed various options with Dr. Darby yesterday. He was deciding between Zoloft and Prozac and asked questions in this assessment to help him decide which he preferred to take. After reviewing, he decided upon taking Prozac. He is working on handling his emotional tensions that has a tendency to flare up intensively at times with various coping strategies , however he is wondering about prn med option for beyond the hospital for if his emotional tensions flae up severely enough tat can not settle himself down. t has not yet taken a Vistaril prn dose. He shared about his hurt and anger over the response his ex gf's family has made but indicates not aim to contact her or them further. He is invested in continuing outpt psychotherapy and having a local outpt psychiatrist in [place] for aftercare. He is engaging in groups and with staff and peers. had fmaily meeting wiht mother today nadir went decently and seemed to help facilitate support and engagement with mothers Physical Exam Psychiatric Orientation: alert, oriented x 3 and cooperative Apperance: appropriately dressed Eye Contact: good eye contact Motor Behavior: steady gait and station and no abnormal motor movements Speech: normal rate/rhythm/volume of speech Affect: + depressed affect and + anxious affect Mood: + depressed mood and + anxious mood Thought Process: goal directed thought process and linear/logical thought process Thought Content: reality based without delusions Suicidal Thoughts: denies suicidal intent; + reports suicidal thoughts Homicidal Thoughts: denies homicidal thoughts Hallucinations: no auditory hallucinations and no visual hallucinations Cognition: recent memory grossly intact, remote memory grossly intact, attention grossly intact and language grossly intact Estimated Intelligence: consistent with education level Insight: + impaired insight Judgement: + impaired judgement Vital Signs (Past 24 Hours) Last Vital Signs Temp 36.7 C 12/28/18 06:49 Pulse 70 12/28/18 06:51 Resp 16 12/28/18 06:49 BP 120/64 12/28/18 06:51 Pulse Ox 98 12/26/18 18:48 Results & Data Current Inpatient Medications Current Inpatient Medications: Current Inpatient Medications Acetaminophen (Tylenol) 650 mg PO Q4H PRN PRN Reason: Headache or Minor Fever Stop: 01/25/19 18:22 Al Hydrox/Mg Hydrox/Simethicone (Maalox) 30 ml PO Q4H PRN PRN Reason: GI Upset Stop: 01/25/19 18:22 Bismuth Subsalicylate (Kaopectate) 15 ml PO PRN PRN PRN Reason: Loose Stool Stop: 01/25/19 18:22 Cetirizine HCl (Zyrtec) 10 mg PO QAM MARIANO Stop: 01/26/19 08:59 Last Admin: 12/28/18 08:53 Dose: 10 mg Documented by: Fluoxetine HCl (Prozac) 20 mg PO QAM MARIANO Stop: 01/27/19 12:29 Last Admin: 12/28/18 12:55 Dose: 20 mg Documented by: Hydroxyzine HCl (Vistaril) 50 mg PO HSZ PRN PRN Reason: Insomnia Stop: 01/25/19 18:22 Hydroxyzine HCl (Vistaril) 25 mg PO Q4H PRN PRN Reason: Anxiety Stop: 01/25/19 18:22 Magnesium Hydroxide (Milk Of Magnesia) 30 ml PO DAILY PRN PRN Reason: Constipation Stop: 01/25/19 18:22 Miscellaneous (Remove Nicoderm Patch) 1 ea N/A HS MARIANO Stop: 01/26/19 21:59 Last Admin: 12/27/18 21:08 Dose: Not Given Documented by: Multivitamins (Multivitamin Tab) 1 tab PO QAM MARIANO Stop: 01/26/19 08:59 Last Admin: 12/28/18 08:53 Dose: 1 tab Documented by: Nicotine (Nicoderm Cq) 14 mg TD QAM MARIANO Stop: 01/26/19 08:59 Last Admin: 12/28/18 08:54 Dose: Not Given Documented by: Nicotine Polacrilex (Nicorette 2mg) 1 piece MT UD PRN PRN Reason: Nicotine Withdrawal Stop: 01/25/19 21:02 Last Admin: 12/28/18 11:05 Dose: 1 piece Documented by: Sodium Chloride ([place] Nasal) 1 - 2 sprays NA PRN PRN PRN Reason: Nasal Dryness/Congestion Stop: 01/25/19 18:22 Mental Health & Subst Abuse Tx Psychiatrist Name of Psychiatrist: [facility] Psychiatrist's Psychiatric Appointment Comment: [id number], [place] [address] Therapist Name of Therapist: Dr. Bello Whipple Therapist's Date of Therapist Appointment: 01/04/19 Time of Therapist Appointment: 1pm Therapy Appointment Comment: [address], [address], [place] [address] Manager Planning Name of Manager Planning: None Post Discharge Appointments Primary Care Physician Name Of Family Doctor: Ramírez Caballero Physician Group: [facility] Luis Edwards MD Primary Care Time of Appointment with PCP: Follow up as needed. Provider Appointment Comment: [id number], [place] [address] Contact Information Discharge Discharge Address: [address], [place], [place] [address] CPT Code CPT Code 97279 (1) Depression Depression Type: major depressive disorder Major depression recurrence: recurrent Active/Remission status: currently active Major depression episode severity: severe Psychotic features: without psychotic features Qualified Code(s): F33.2 - Major depressive disorder, recurrent severe without psychotic features
[2018-12-29] MEDS: NICOTINE 14 MG/24 HR PATCH TD SCH (09:15)
[2018-12-29] MEDS: CETIRIZINE HCL 10 MG TABLET PO SCH (09:17)
[2018-12-29] MEDS: NICOTINE POLACRILEX 2 MG GUM MT PRN ×2 (09:17→14:15)
[2018-12-29] MEDS: FLUOXETINE HCL 20 MG CAP PO SCH (09:17)
[2018-12-29] MEDS: MULTIVITAMIN TAB PO SCH (09:17)
--- NOTE | 2018-12-29 18:37 | Psychiatric Progress Note ---
Date of Service December 29, 2018 Impression / Recommendations Impression 23-year-old single male who recently moved to [facility] but has family in [place], has a history of recurrent depression and social anxiety, and presented with worsening mood and suicidal ideation, after multiple suicide attempts in the past several weeks, including hanging and jumping off a bridge (went to the bridge and sent a suicide note to friends, but did not ultimately jump). He describes worsening of depression after a breakup about 4 weeks ago, compounded by multiple psychosocial stressors including a move and looking for a job, and also complicated by the history of his father's completed suicide by hanging 4 years ago. He had good response to sertraline with respect to anxiety and some of his depressive symptoms, but questions if it was were making his suicidal thoughts more intense, so stopped it several days ago. We discussed other medication options including escitalopram, fluoxetine, and venlafaxine XR and has decided to start fluoxetine. He recently started therapy in [place], and is willing for a referral for psychiatric care as well. He is also agreed to a family meeting with his mother. He was started on fluoxetine as a replacement for sertraline on 12/29/2018. The starting dose was fluoxetine 20 mg a day, and he has been advised that he will probably need to have the dose titrated. This can occur on an outpatient basis. I do not believe that the patient is currently suicidal and he has developed a fairly comprehensive safety plan. He tells me that 1 of the things he has learned in the past month says that he really does not wish to be and recognizes that even at the peak of his suicidal impulses his instinct is to not actually act. (1) Depression: 12/27 - Reviewed diagnoses and treatment options, including resuming sertraline while monitoring SI closely, trial of a different SSRI (escitalopram or fluoxetine), or trial of SNRI. Discussed risks and benefits of each, and he will consider the options and wants to talk to his mother to see what she has responded to medication-becker. - Encourage group attendance and participation, working on coping skills and safety plan. - Family meeting with mother. - Coordinate care with therapist in [facility] and refer for psychiatric care. 12/28 - reviewed fluoxetine and sertraline in detail and pt decided to start trial of fluoxetine 20mg daily first dose today validated aim to use coping strategies and reminded pt of Vistaril prn doses as option to take if emotional tensions/anxiety flares up too intensely, can consider this as option for him for after discharge as well continue treatment plan (2) Anxiety: 12/27 - long standing social anxiety, improved on SSRI in the past. Med recs as above, and continue OP therapy. 12/28 starting prozac 20mg daily as above, prn vistaril while on the unit and perhaps for after discharge as well family meeting with mother occured 12/29 -The patient just started Prozac 20 mg daily today. He notes that so far he has not experienced any side effects from that and he feels confident that he will be able to tolerate it. -Patient remains somewhat anxious, but says that he has always been "anxious" at baseline. He smiles and says that he supposes that he inherited that from, a woman he describes as being an anxious person. 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 Review of Systems Sleep Information Total Hours of Sleep: 5.75 Sleep Comments: pt on q-15 minute checks Meal Information Percent Meal Consumed - Breakfast: 100 Percent Meal Consumed - Lunch: 100 Percent Meal Consumed - Dinner: 100 Subjective Subjective Patient was seen & assessed and interval progress reviewed with treatment team. I met individually with the patient in order to assess his current mental status, evaluate his response to treatment, address issues and concerns that may arise, and coordinate any changes in his treatment regimen with the patient. The patient begins by telling me that he has been under a series of stresses recently. He graduated from the [employer] in the spring, spent time at home with his mother in [place], and then moved to [place], [place] recently in order to pursue his interest in music. 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 The patient says that he now realizes that he had misinterpreted some of the signals that he thought he was getting from the girlfriend and continue to try to reconcile with her. However, she did not respond and he acknowledges that both the girl and her family have made it clear that they do not wish to have any further contact in any form from him, now or in the future. He tells me that he not only accepts this, he says that at this point he has no desire to have any further contact. He adds, "it took a while, but I definitely have gotten the message." Within this context, the patient began to experience depressed mood as well as thoughts of suicide. Approximately 3 weeks ago he tied a noose around his neck, trapped one end of the rope to the wedge of a door to his bedroom, placed a noose around his neck, and pitched his body forward so as to tighten the noose around his neck and cut off his airway. The patient expected that he would lose consciousness and eventually of asphyxiation. However, he was surprised to learn that it was painful and he found the sensation of choking to be extremely distressful, so he immediately stood up and remove the news. On Tuesday of this week (5 days ago) he contemplated jumping from the [facility] in [facility]. He actually went to the bridge, walked to the middle of the bridge, and contemplated jumping. He first attempted one last contact of his former girlfriend, but she did not answer. He then tried calling several other people and was similarly unsuccessful in reaching anyone subsequently, he decided that he did not wish to jump or otherwise kill himself, so he walked back across the bridge to [place], called his mother, reached her, and told her what had happened. She instructed the patient to come home to [place]. The patient said that he had already planned to return to his mother's home, and he said that he recognized that he probably needed psychiatric hospitalization because of the ongoing thoughts of suicide, with plan and at least ambivalent intent. The patient was evaluated in [place] and decision to admit the patient to the hospital was subsequently made. Today, the patient talked at some length about his own father's suicide. The patient's father had committed suicide approximately 4 or 5 years ago when the patient was 18. The father suicide was by hanging. The patient notes that he avoided thinking about his father's until fairly recently, and then went on a request to learn more about suicide. He said that he believes that he is read 9 books on the subject, and found to that he thought were particularly helpful in helping him understand what people go through in the attempt suicide. He tells me that 1 of the things he is come to realize is that he really does not want to , and he notes that he is frightened that he might have accidentally caused serious physical harm through the suicidal behavior as described above. He has, "people jump off bridges and end up paralyzed. People try to hang themselves and end up with brain damage." We talked about the perspective of time and I assured the patient that 5 or 10 years from now he will come to wonder why he would even have considered suicide over the circumstances that he is now describingand that a woman in question will be, a distant an unimportant memory. The patient smiled and said that he has already begun to understand this and recognizes that it is true. We focused on his safety plan, and he tells me that he thinks that one mistake he made during the past month was that he experienced chronic suicidality without doing anything to mitigate against it. Accordingly, he says that he realizes that he should not wait until he becomes acutely suicidal and ready to actually act before he seeks help and alert to other people. If I ever get to the point where I would actually want to kill myself right now, the plan will be for me to call 911. But when I am sitting around and thinking about suicide and looking at ways to commit suicide, that will be my sign that I need to take steps to prevent the thoughts from progressing to actually being tempted to act on them. He tells me that he has several contacts that he can use. He is also seeing a therapist in [place]. He recently started therapy and has only had 2 sessions, but plans to see the therapist twice a week. Physical Exam Psychiatric Orientation: alert and oriented x 3 Apperance: appropriately dressed, appropriately groomed and appeared stated age Eye Contact: good eye contact Motor Behavior: steady gait and station and no abnormal motor movements Speech: normal rate/rhythm/volume of speech Affect: + anxious affect (The patient is fairly bright, but does appear to be somewhat anxious. He notes that he is "always a little bit anxious) "May be a little anxious, but mostly am feeling pretty good. Ready to go home." Thought Process: goal directed thought process and linear/logical thought process Thought Content: reality based without delusions Suicidal Thoughts: denies suicidal thoughts The patient is future oriented. He describes his plans to go home and spend some additional time with his mother. He notes that his mother loves him and tries to be supportive, but has difficulty because of her own anxious distress. "It is hard to talk with her directly about problems because just hearing about problems makes her even more anxious and she reacts." The patient says that he is aware of this and understands her limitations. He then plans to return to [place], got a "day job" and pursue his interest in music. He says that he has sufficient funds and savings to live for a significant amount of time in [place] without a job, but hopes to do dog walking and other similar tasks in order to contribute to his income. He also tells me that his long-term goal is to find a spouse, and raise a family. Homicidal Thoughts: denies homicidal thoughts Hallucinations: no auditory hallucinations Cognition: recent memory grossly intact, remote memory grossly intact, attention grossly intact and language grossly intact Estimated Intelligence: + above average estimated intelligence Insight: good insight Judgement: good judgement Vital Signs (Past 24 Hours) Last Vital Signs Temp 36.5 C 12/29/18 06:52 Pulse 87 12/29/18 06:53 Resp 16 12/29/18 06:52 BP 102/63 12/29/18 06:53 Pulse Ox 98 12/26/18 18:48 Results & Data Current Inpatient Medications Current Inpatient Medications: Current Inpatient Medications Acetaminophen (Tylenol) 650 mg PO Q4H PRN PRN Reason: Headache or Minor Fever Stop: 01/25/19 18:22 Al Hydrox/Mg Hydrox/Simethicone (Maalox) 30 ml PO Q4H PRN PRN Reason: GI Upset Stop: 01/25/19 18:22 Bismuth Subsalicylate (Kaopectate) 15 ml PO PRN PRN PRN Reason: Loose Stool Stop: 01/25/19 18:22 Cetirizine HCl (Zyrtec) 10 mg PO QAM [facility] Stop: 01/26/19 08:59 Last Admin: 12/29/18 09:17 Dose: 10 mg Documented by: Fluoxetine HCl (Prozac) 20 mg PO QAM MARIANO Stop: 01/27/19 12:29 Last Admin: 12/29/18 09:17 Dose: 20 mg Documented by: Hydroxyzine HCl (Vistaril) 50 mg PO HSZ PRN PRN Reason: Insomnia Stop: 01/25/19 18:22 Hydroxyzine HCl (Vistaril) 25 mg PO Q4H PRN PRN Reason: Anxiety Stop: 01/25/19 18:22 Last Admin: 12/28/18 15:30 Dose: 25 mg Documented by: Magnesium Hydroxide (Milk Of Magnesia) 30 ml PO DAILY PRN PRN Reason: Constipation Stop: 01/25/19 18:22 Miscellaneous (Remove Nicoderm Patch) 1 ea N/A HS [facility] Stop: 01/26/19 21:59 Last Admin: 12/28/18 21:20 Dose: Not Given Documented by: Multivitamins (Multivitamin Tab) 1 tab PO QAM [facility] Stop: 01/26/19 08:59 Last Admin: 12/29/18 09:17 Dose: 1 tab Documented by: Nicotine ([facility]oderm Cq) [facility] Stop: 01/26/19 08:59 Last Admin: 12/29/18 09:15 Dose: Not Given Documented by: Nicotine Polacrilex (Nicorette 2mg) 1 piece MT UD PRN PRN Reason: Nicotine Withdrawal Stop: 01/25/19 21:02 Last Admin: 12/29/18 14:15 Dose: 1 piece Documented by: Sodium Chloride ([place] Nasal) 1 - 2 sprays NA PRN PRN PRN Reason: Nasal Dryness/Congestion Stop: 01/25/19 18:22 Mental Health & Subst Abuse Tx Psychiatrist Name of Psychiatrist: [id number] Psych[facility]rist's Date of Appointment with Psychiatrist: 01/17/19 Time of Appointment with Psychiatrist: 1pm Psychiatric Appointment Comment: [address], [place] [address] Therapist Name of Therapist: Dr. Bello Whipple Therapist's Date of Therapist Appointment: 01/04/19 Time of Therapist Appointment: 1pm Therapy Appointment Comment: [address], [address], [address] Community Health Program Coordinator Name of Community Health Program Coordinator: None Post Discharge Appointments Primary Care Physician Name Of Family Doctor: Ramírez Caballero Physician Group: Pro Luis Edwards MD Primary Care Time of Appointment with PCP: Follow up as needed. Provider Appointment Comment: [id number], [place] [address] Contact Information Discharge Discharge Address: [address], [place] [address] CPT Code CPT Code 96088 (1) Depression Depression Type: major depressive disorder Major depression recurrence: recurrent Active/Remission status: currently active Major depression episode severity: severe Psychotic features: without psychotic features Qualified Code(s): F33.2 - Major depressive disorder, recurrent severe without psychotic features
[2018-12-30] MEDS: CETIRIZINE HCL 10 MG TABLET PO SCH (09:49)
[2018-12-30] MEDS: MULTIVITAMIN TAB PO SCH (09:49)
[2018-12-30] MEDS: FLUOXETINE HCL 20 MG CAP PO SCH (09:49)
[2018-12-30] MEDS: NICOTINE 14 MG/24 HR PATCH TD SCH (09:50)
--- NOTE | 2018-12-30 10:58 | Discharge Summary ---
Date of Service December 30, 2018 History of Present Illness Per records, the patient presented to the ER yesterday, 12/26/2018, reporting worsening depression for the past 3 weeks. He reported multiple stressors including the of his father by suicide several years ago, a recent move, and that his girlfriend broke up with him. He said he recently moved to [facility] and does not have outpatient mental health treatment, but had been prescribed sertraline by his PCP 2 months ago which she stopped 2 days prior to presentation as he thought it was making him feel worse. He saw his PCP, Dr. Donovan, and disclosed increasing suicidality, and was referred to the emergency room. He reported suicidal thoughts with multiple plans, and 3 weeks ago bought a rope and tied it into a noose which he put around his neck, but stopped because it hurt. The night prior to presentation he drove to a bridge in [facility] with thoughts of jumping, but did not go through with it, and the following day decided to drive back home to [place] and get help. Inpatient treatment was recommended and he signed in voluntarily. While he was in the ER, local police called to report that his ex girlfriend and her family reported him for harassment, and that he contacted the patient to warn him to cease communication. He clarified that no criminal charges are filed at this time. On my assessment, he reports that "the biggest thing is I just got out of a relationship with someone I was deeply, deeply in love with. I've been iced out by them, sort of needed answers and I've been blocked." He knew his ex- girlfriend from and she is also from [place], and they have a history, and have been dating for the past year which he describes as "really intense." He has been surprised at his ex-girlfriend's response in not wanting to talk to him, noting they broke up the day before he moved to [facility] 4 weeks ago. He started having suicidal thoughts about a week later, and after a couple days bought a rope and went to a park that he knew would be empty at night, climbed up a tree and hung up the rope that he had tied into a noose, and throughout this was calling his ex. He was also drinking throughout the incident. He had researched where on the neck to apply pressure to end his life. He decided to go home as he didn't want someone to come along while he was doing this, thinking he could hang himself at home, "but another part of me thought I was just going to go to bed." He called his ex-girlfriend again, begging her to talk to him and saying that he just had a rope around his neck. She had been telling him not to call her, but they ultimately talked and the conversation ended badly. He returned home and attempted to hang himself again, hanging the noose over a door, and went to his knees to apply pressure, and thinks he was about to lose consciousness but was in a lot of pain and put his feet down. He felt shaken and "overwhelmingly sad," and reached out to some of his friends who were supportive. His ex-girlfriend then blocked all communication with him. About a week later, he again felt "really low," describing "just sitting in bed and an overwhelming, adrenaline, waves of stress," and frustration that he was still looking for a job and mourning his relationship. He had been talking to one friend daily but "just started lying about it," saying he was "doing great" when he wasn't, as he felt guilty for "asking so much of his." He used cocaine one night at a republican, which he recognized worsened his mood as it "really depleted my dopamine." He did enjoy his birthday with his mother visiting and going to dinner and a show, but later than night was "bawling, screaming, because it's just intolerable." He reports mood symptoms improved on sertraline, but wonders if it is causing suicidal thoughts, as his SI has gotten stronger and he has had more times where he has intent to follow through. He thinks that about 15% of his SI is due to medication. He denies changes in appetite or weight, sleeping 8 hours/night but still feels tired during the day, motivation is low, with hopelessness. Describes daily thinking that he should go out and get a job, but then thinking "you're just going to submit suicide anyway." Describes renting a movie and knew the protagonist looked like his ex-girlfriend, drinking alcohol while watching it, pausing the movie intermittently to cry, and when it was over going to a bridge with thoughts to jump, knowing that there was a place in the middle where there was land underneath it. He had previously looked up bridges in [facility] that people could jump off to in order to , and sent messages to two friends explaining where his phone, keys, and car were, and asking them to pass messages on to other people. He was also repeatedly calling his ex-girlfriend throughout this incident, and tried to call her mother as well. When he arrived, he was "there for a while," climbed up on the ledge, and one of his friends then called him and he climbed back down to talk to him, and ultimately called his mother who told him to come back to [place], and after sleeping, came into the ER. 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 H/o one panic attack a year ago when driving a rental car that broke down. Denies SUSAN, PTSD, OCD symptoms, other than times where he was "obsessive" about tightening and tuning his drums, which is not going on currently. He denies ever having hallucinations, paranoia, and aryan. Physical Exam Psychiatric Orientation: alert and cooperative Apperance: appropriately dressed, appropriately groomed and appeared stated age Eye Contact: good eye contact Motor Behavior: steady gait and station and no abnormal motor movements Speech: normal rate/rhythm/volume of speech Affect: euthymic affect and mood congruent with affect "Much better." Thought Process: goal directed thought process and linear/logical thought process Thought Content: reality based without delusions Suicidal Thoughts: denies suicidal thoughts Reports chronic, intermittent, passive suicidal thoughts when thinking about the loss of his relationship, but denies any plan or intent to harm himself. Homicidal Thoughts: denies homicidal thoughts Hallucinations: no auditory hallucinations Cognition: recent memory grossly intact, remote memory grossly intact, attention grossly intact and language grossly intact Estimated Intelligence: consistent with education level Insight: good insight Judgement: + fair judgement Vital Signs (Past 24 Hours) Last Vital Signs Temp 36.5 C 12/30/18 06:45 Pulse 80 12/30/18 06:45 Resp 18 12/30/18 06:45 BP 118/70 12/30/18 06:45 Pulse Ox 98 12/26/18 18:48 Principal Diagnosis Major depressive disorder, recurrent, severe without psychosis Generalized anxiety disorder Psychiatric Data Charlie was hospitalized on our unit for 4 days. He was started on fluoxetine to target mood and anxiety symptoms, which he tolerated well without side effects. He was engaged in treatment, attended and participated in groups and therapy, and worked on a detailed in comprehensive discharge safety plan which included multiple friends. He talked in depth with staff about his stressors, including his father's by suicide, the recent breakup, and his ex-girlfriend and her family's reaction to his attempts to contact them when he was in crisis. He received hydroxyzine on the unit for anxiety and reported it was beneficial. He was eating, sleeping, and tending to ADLs independently while on the unit. He reported improved mood and suicidal thoughts, but stated that he has struggled with chronic thoughts of suicide for years. He reported good rapport with his therapist in [facility], whom he recently started treatment with, and a plan to get a psychiatrist there as well. Social work attempted to schedule him with a psychiatrist in [place], but was unable to secure an appointment, so he agreed to a referral for local psychiatric care in the interim while he continues to look for a long-term psychiatrist, with the assistance of his outpatient therapist. He had a family meeting with his mother on 12/28/2018, during which he openly discussed his emotions in the wake of the end of his romantic relationship, his use of maladaptive coping skills including alcohol and random dating to numb and distract himself, and his plans for the future. They discussed their different communication styles and dynamics of the relationship. Mother confirmed there are no guns or stockpiles of medications in either the patient's apartment or her home, and they discussed plans for the days immediately following discharge. Day of Discharge Assessment On my assessment, the patient reports he is tolerating fluoxetine well and mood is improving since admission. He reports hydroxyzine was beneficial and requests a prescription for that or Ativan at discharge; was willing for hydroxyzine after discussion of risks of benzodiazepines particularly in combination with alcohol. Plans to cut back on alcohol use, "maybe just a beer at the end of the day," as recognizes it doesn't help mood. He denies SI, "I don't have those thoughts right now, but I have had them chronically, when triggered, like by this relationship." He feels he is processing his grief over the end of the relationship, and is trying to let it go. He He is hopeful he will be able to process this, saying he read 10 books about suicide which helped him to process his father's by suicide, and plans to do the same thing in processing the loss of his relationship. He has been reading multiple novels here on the unit, and enjoyed that and talking about the books. He is able to review his safety plan, and has talked to multiple friends who are supportive. He reports good sleep and appetite, and is requesting discharge. He is planning to stay at home with his mom this weekend, play drums, and go to the gym, and then go back to [facility] on Tuesday. He will resume therapy there (increasing to twice weekly), and continue to look for a psychiatrist there, and plans to return to [place] for outpatient psychiatric care in the interim. Transition of Care Transition Of Care Record: was reviewed with the patient Advance Directives Advance Directives Information Provided: Yes Advance Directives: No Mental Health Advance Directive: No Advance Directives on File: No Living Will: No Power of Truck Chauffeur: No Advance Directives Reason:: Declines as Mental Health Visit. Risk Factors Assessment Risk factors were mitigated by admission to the inpatient unit, use of medications to target depressive and anxiety symptoms, involvement in groups and therapy, working on healthy coping skills and discharge safety plan, discussing risks of substance use and recommendations for abstinence, involvement of mother and a family meeting, and referring for outpatient psychiatric care. Patient h as demonstrated improvement in mood and suicidal thoughts, is eating and sleeping, performing ADLs independently, and making plans for the future. Although he reports chronic, passive, intermittent suicidal thoughts when distressed, he denies intent or plan to harm himself, and feels safe for discharge. He is able to review his safety plan and is willing to follow up with outpatient treatment. He is requesting discharge, and as he is no longer at acute risk of harm to himself, can be managed as an outpatient at this time. He is not at increased risk for harm to others. 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) Stable Relationships: No Supportive Family: Yes Tobacco Cessation at Discharge Tobacco Cessation Medication Prescribed at Discharge: Not Applicable/Non-Smoker Total Time Total Time Spent: Greater Than 30 Minutes Total Time Includes: Examination of the patient, Discharge Planning and Medication Reconciliation Discharge Data Lab Results 12/26/18 12/26/18 12/26/18 15:04 15:04 15:58 WBC 9.46 RBC 4.78 Hgb 16.1 Hct 44.7 MCV 93.5 MCH 33.7 MCHC 36.0 RDW Std Deviation 45.0 RDW Coeff of Steffany 13.0 Plt Count 182 MPV 10.5 H Immature Gran % (Auto) 0.1 Neut % (Auto) 74.2 Lymph % (Auto) 16.8 [place] % (Auto) 7.1 Eos % (Auto) 1.5 Baso % (Auto) 0.3 Immature Gran # (Auto) 0.01 Neut # (Auto) 7.02 H Lymph # (Auto) 1.59 [place] # (Auto) 0.67 H Eos # (Auto) 0.14 Baso # (Auto) 0.03 Sodium Potassium Chloride Carbon Dioxide Anion Gap BUN Creatinine Est Cr Clr Drug Dosing Est GFR ( Amer) Est GFR (Non-Af Amer) BUN/Creatinine Ratio Glucose Calcium Total Bilirubin AST ALT Alkaline Phosphatase Total Protein Albumin Globulin Albumin/Globulin Ratio TSH Urine Color Yellow Urine Appearance Cloudy A Urine pH 8.0 H Ur Specific [place] 1.021 Urine Protein Negative Urine Glucose (UA) Negative Urine Ketones Negative Urine Blood Negative Urine Nitrite Negative Urine Bilirubin Negative Urine Urobilinogen Negative Ur Leukocyte Esterase Negative Urine WBC (Auto) 0 Urine RBC (Auto) 0-4 U Hyaline Cast (Auto) 0 U Epithel Cells (Auto) 0-5 Urine Bacteria (Auto) Negative Salicylates Urine Opiates Screen Neg Ur Methadone, Qual Neg Acetaminophen Urine Barbiturates Neg Ur Phencyclidine (PCP) Neg U Amphetamin/Meth Scrn Neg MDMA (Ecstasy) Screen Neg U Benzodiazepines Scrn Neg Ur Cocaine Metabolite Neg U Marijuana (THC) Screen Neg Ethyl Alcohol mg/dL 12/26/18 12/26/18 12/26/18 15:58 15:58 15:58 WBC RBC Hgb Hct MCV MCH MCHC RDW Std Deviation RDW Coeff of Steffany Plt Count MPV Immature Gran % (Auto) Neut % (Auto) Lymph % (Auto) [place] % (Auto) Eos % (Auto) Baso % (Auto) Immature Gran # (Auto) Neut # (Auto) Lymph # (Auto) [place] # (Auto) Eos # (Auto) Baso # (Auto) Sodium 139 Potassium 4.2 Chloride 105 Carbon Dioxide 27 Anion Gap 7.0 BUN 17 Creatinine 1.11 Est Cr Clr Drug Dosing 108.4 Est GFR ( Amer) 106.4 Est GFR (Non-Af Amer) 91.8 BUN/Creatinine Ratio 15.3 Glucose 97 Calcium 9.3 Total Bilirubin 1.4 H AST 22 ALT 34 Alkaline Phosphatase 54 Total Protein 7.3 Albumin 4.0 Globulin 3.3 Albumin/Globulin Ratio 1.2 TSH 3.120 Urine Color Urine Appearance Urine pH Ur Specific [place] Urine Protein Urine Glucose (UA) Urine Ketones Urine Blood Urine Nitrite Urine Bilirubin Urine Urobilinogen Ur Leukocyte Esterase Urine WBC (Auto) Urine RBC (Auto) U Hyaline Cast (Auto) U Epithel Cells (Auto) Urine Bacteria (Auto) Salicylates < 1.7 L Urine Opiates Screen Ur Methadone, Qual Acetaminophen < 2 L Urine Barbiturates Ur Phencyclidine (PCP) U Amphetamin/Meth Scrn MDMA (Ecstasy) Screen U Benzodiazepines Scrn Ur Cocaine Metabolite U Marijuana (THC) Screen Ethyl Alcohol mg/dL < 3.0 Hospital Course (1) Depression: 12/27 - Reviewed diagnoses and treatment options, including resuming sertraline while monitoring SI closely, trial of a different SSRI (escitalopram or fluoxetine), or trial of SNRI. Discussed risks and benefits of each, and he will consider the options and wants to talk to his mother to see what she has responded to medication-becker. - Encourage group attendance and participation, working on coping skills and safety plan. - Family meeting with mother. - Coordinate care with therapist in [facility] and refer for psychiatric care. 12/28 - reviewed fluoxetine and sertraline in detail and pt decided to start trial of fluoxetine 20mg daily first dose today validated aim to use coping strategies and reminded pt of Vistaril prn doses as option to take if emotional tensions/anxiety flares up too intensely, can consider this as option for him for after discharge as well continue treatment plan 12/30 -continue fluoxetine 20 mg daily, and titrate as an outpatient if john cated. -Follow-up with therapist in [place], who is assisting him to find a psychiatrist there. In the interim, he agreed to come home to [place] for appointments and has been referred to [place] for medication management. (2) Anxiety: 12/27 - long standing social anxiety, improved on SSRI in the past. Med recs as above, and continue OP therapy. 12/28 - starting prozac 20mg daily as above, prn vistaril while on the unit and perhaps for after discharge as well family meeting with mother occurred 12/29 -The patient just started Prozac 20 mg daily today. He notes that so far he has not experienced any side effects from that and he feels confident that he will be able to tolerate it. -Patient remains somewhat anxious, but says that he has always been "anxious" at baseline. He smiles and says that he supposes that he inherited that from, a woman he describes as being an anxious person. 12/30 -patient reports hydroxyzine was helpful for anxiety and requested a prescription at discharge which was provided. He also asked about a prescription for Ativan, but advised against this due to his alcohol use, specifically drinking prior to each of his recent suicide attempts, and concern for disinhibition/addiction/misuse. He expressed understanding. Encouraged him to avoid nonprescribed psychoactive substances due to the risk of worsening mood and anxiety symptoms and increasing impulsivity/disinhibition. Mental Health & Subst Abuse Tx Psychiatrist Name of Psychiatrist: [facility] Psychiatrist's Date of Appointment with Psychiatrist: 01/17/19 Time of Appointment with Psychiatrist: 1pm Psychiatric Appointment Comment: [facility] , [place] [address] Therapist Name of Therapist: Dr. Bello Whipple Therapist's Date of Therapist Appointment: 01/04/19 Time of Therapist Appointment: 1pm Therapy Appointment Comment: [address] [facility], [address], [place] [address] Fingerprint Expert Name of Fingerprint Expert: None Post Discharge Appointments Primary Care Physician Name Of Family Doctor: Ramírez Caballero Physician Group: Pro Luis Edwards MD Primary Care Time of Appointment with PCP: Follow up as needed. Provider Appointment Comment: [id number], [place] [address] Smoking Cessation Counseling Tobacco Cessation Medication Prescribed at Discharge: Not Applicable/Non-Smoker Contact Information Discharge Discharge Address: [address], [place] [address] Discharge Plan Discharge Items Reason For Visit: DEPRESSION Discharge Diagnosis: Major depression, recurrent, severe without psychosis Activity: Per Instructions section Non-emergency contact: Psychiatrist and Therapist Call non-emergency contact if: you have any medication questions and your symptoms worsen Follow-up/Referrals: Luis Donovan MD [Primary Care Provider] - Diet: Regular Addtl Attending Provider Instructions: SPECIAL CARE INSTRUCTIONS: 1. Follow through with your scheduled aftercare appointments. If unable to keep an appointment, please call to reschedule. 2. Take your medication only as prescribed. Medication should not be changed or stopped without the approval of your doctor. In the event of worsening symptoms or concerns about side effects, contact your doctor immediately. 3. Utilize new healthy coping skills, anger management skills, and stress management skills learned during your hospitalization. Journal feelings and process them with a support person. Identify stressors or situations that may result in relapse, deterioration or inappropriate behaviors and develop a plan to deal with those issues. 4. If your coping skills are ineffective and you are in crisis, contact your outpatient providers for direction. If unable to reach your providers, please call the CAN HELP LINE AT or go to the closest Emergency Room. 5. Avoid alcohol and un-prescribed drugs. 6. You have been provided with the Mental Health Advance Directives Pamphlet for your review. AFTERCARE APPOINTMENTS: * Please call your insurance company prior to your scheduled appointment to confirm your aftercare providers are covered. Take your insurance information to your appointments. WHO TO CALL AND WHEN: Medical Emergencies: For questions or emergencies related to your hospital stay, please contact the Inpatient Behavioral Health Unit at [phone]. A program clinician is on-call 08/11 for the Behavioral Health Unit for emergencies At any time you feel your situation is an emergency, you may also call 911 immediately. Your Doctors Instructions noted above were prepared by provider Melvina Darby MD. Pending Studies at Discharge: No Stand-Alone Forms: My [facility] Medications and DC Order Prescriptions: New fluoxetine 20 mg Capsule 20 mg PO QAM Qty: 30 RF: 0 hydroxyzine HCl 25 mg Tablet 25 mg PO BID PRN (Reason: anxiety) Qty: 30 RF: 0 Continued cetirizine [Zyrtec] 10 mg Tablet 10 mg PO DAILY RF: 0 melatonin 3 mg Tablet 3 mg PO HS PRN (Reason: Sleep) RF: 0 multivitamin with iron Tablet 1 tab PO DAILY RF: 0 Discontinued sertraline 50 mg tablet 75 mg PO DAILY Qty: 135 RF: 2 Admission Data Admit Date/Time: 12/26/18 18:23 Attending Provider: Melvina Darby Admit Provider: Melvina Darby Primary Care Provider: Luis Donovan Other Interventions: PSY Interdisciplinary Discharge Planning Last Done: 12/29/18 15:35
[2018-12-30] MEDS ORDERED: DESTROY THIS MEDICATION ONE (11:38)
== END 2018-12-30 12:10 | disposition home or self-care (01) | DRG 885 ==
LOC: ED 14:36 → 3S 18:23